=== PATIENT | male | born 1965 | race Caucasian/White ===

== ENCOUNTER 2020-04-23 07:42 | Inpatient (IN) | payer OTHER ==
[~2020-04-23] VITALS: Ht 182.9 cm; Wt 78.4 kg
[2020-04-23] MEDS ORDERED: DEXAMETHASONE SOD PHOS 10 MG/ML VIAL. ONE (08:20)
[2020-04-23] MEDS ORDERED: DEXAMETHASONE SOD PHOS 10 MG/ML VIAL. IVP ONE (08:30)
[2020-04-23] MEDS ORDERED: IV NORMAL SALINE 1,000ML 1,000 ML IV ONE (08:30)
[2020-04-23 08:41] LABS: BASO % 0 % (0-3); EOS # 0.1 x10^3/uL (0.0-0.7); EOS % 1 % (0-3); HEMATOCRIT 42.4 % (39.0-53.0); LYMPH # 0.5 x10^3/uL (1.0-4.8); LYMPH % 7 % (24-48); MEAN CORPUSCULAR HEMOGLOBIN 30 pg (25-35); MEAN CORPUSCULAR HGB CONC 33 g/dL (31-37); MEAN CORPUSCULAR VOLUME 91 fL (79-100); MONO # 0.7 x10^3/uL (0.0-1.1); MONO % 10 % (0-9); NEUT # 5.9 x10^3uL (1.8-7.7); NEUT % 83 % (31-73); PLATELET COUNT 344 x10^3/uL (140-400); RED BLOOD COUNT 4.67 x10^6/uL (4.30-5.70); RED CELL DISTRIBUTION WIDTH 13.2 % (11.5-14.5); WHITE BLOOD COUNT 7.2 x10^3/uL (4.0-11.0)
[2020-04-23 08:43] LABS: CALCIUM 8.1 mg/dL (8.5-10.1); CREATININE 0.9 mg/dL (0.7-1.3); GFR 88.3; POTASSIUM 4.3 mmol/L (3.5-5.1)
--- NOTE | 2020-04-23 08:44 | PHYS DOC ---
General Adult EDM: Chief Complaint: SHORTNESS OF BREATH HPI: HPI: Patient is a 55-year-old male coming in for shortness of breath, decreased p.o. intake, and diarrhea. Patient was diagnosed with COVID-19 3 days ago. His is also diagnosed prior to that but has been getting better. Patient states he has had decreased p.o. intake because he feels too short of breath to drink. Is also noted darker urine. Has not had a fever for the last couple of days. Has occasional body aches. Denies any vomiting. Has had congestion and rhinorrhea with thick yellow sputum, cough is nonproductive. Review of Systems: Review of Systems: All other systems within normal limits except for as noted in the HPI Current Medications: Current Meds: Current Medications Medications (Trade) Dose Ordered Sig/Tonya Start Time Stop Time Status Last Admin Dose Admin Dexamethasone Sodium Phosphate (Decadron) 10 mg 1X ONCE 04/23/20 08:30 04/23/20 08:31 UNV 04/23/20 08:27 10 MG Sodium Chloride 1,000 ml @ 1,000 mls/hr 1X ONCE 04/23/20 08:30 04/23/20 09:29 UNV 04/23/20 08:26 1,000 MLS/HR Allergies: Allergies: Allergies Coded Allergies Type Severity Reaction Last Updated Verified No Known Drug Allergies 04/23/20 No Physical Exam: PE: Constitutional: Well developed, well nourished, no acute distress, non-toxic appearance. [] HENT: Normocephalic, atraumatic, bilateral external ears normal, dry mucous membranes, nose normal. [] Eyes: PERRLA, conjunctiva normal, no discharge. [] Neck: No rigidity, supple, no stridor. [] Cardiovascular: Regular rate and rhythm, brisk cap refill [] Lungs & Thorax: Non labored symmetric respirations, moderate tachypnea [] Abdomen: Soft, nondistended. Skin: Warm, dry, no erythema, no rash. [] Back: Unremarkable Extremities: No deformities, range of motion grossly intact, no lower extremity edema [] Neurologic: Alert and oriented X 3, no focal deficits noted. [] Psychologic: Affect normal, judgement normal, mood normal. [] Current Patient Data: Labs: Laboratory Tests Test 04/23/20 07:55 POC Venous pH 7.43 (7.32-7.42) H POC Venous pCO2 37 mmHg (41-51) L POC Venous pO2 38 mmHg (20-40) Venous Blood HCO3 24 mmol/L (24-28) POC Venous O2 Saturation (Afsaneh) 73 % POC FiO2 24 EKG: EKG: Sinus rhythm, heart rate 81 bpm, normal axis, no ST elevation or depression, no ectopy, normal intervals. [] Radiology/Procedures: Radiology/Procedures: CTA CHEST INDICATION: hypoxia, covid + Comparison: Radiograph 04/23/2020. TECHNIQUE: Following the uneventful administration of intravenous contrast, 100 cc Omnipaque 350, axial CT sections were obtained through the lungs and upper abdomen. Multiplanar reconstructions and MIP images were obtained. PQRS compliance statement: One or more of the following individualized dose reduction techniques were utilized for this examination: 1. Automated exposure control 2. Adjustment of the mA and/or kV according to patient size 3. Use of iterative reconstruction technique FINDINGS: Pulmonary arteries: No evidence of pulmonary thromboembolus disease Lungs and Airways: Extensive bilateral groundglass opacities and consolidations. No abnormality of the central airways. Pleura: The pleural spaces are normal. Heart and Mediastinum: The visualized thyroid is normal in size and attenuation. No axillary or supraclavicular lymphadenopathy. Few conspicuous mediastinal lymph nodes, likely reactive. Normal cardiac size. Coronary artery atherosclerotic disease. The great vessels of the thorax are normal. Abdomen: Limited images through the upper abdomen show no abnormality of the visualized organs. Bones and Soft Tissues: The visualized bones and chest wall soft tissues are within normal limits. IMPRESSION: 1. No evidence of pulmonary thromboembolic disease. 2. Extensive bilateral groundglass opacities and consolidations, consistent with patient's history of infection. 3. Coronary artery atherosclerotic disease. EXAM: XR CHEST 1V INDICATION: Reason: covid / Spl. Instructions: / History: . TECHNIQUE: Single view COMPARISON: None FINDINGS: The heart size is normal. The great vessels appear unremarkable. There is no hilar or mediastinal mass. The lungs show peripheral predominant bilateral patchy parenchymal consolidation involving the left lower lobe and the right upper lobe most clearly but also in volving the medial right lung and left apex. There is no pleural effusion or pneumothorax. There are no significant osseous abnormalities. IMPRESSION: Multifocal pneumonia bilaterally.[] Heart Score: Risk Factors: Risk Factors: DM, Current or recent (<one month) smoker, HTN, HLP, family history of CAD, obesity. Risk Scores: Score 0 - 3: 2.5% MACE over next 6 weeks - Discharge Home Score 4 - 6: 20.3% MACE over next 6 weeks - Admit for Clinical Observation Score 7 - 10: 72.7% MACE over next 6 weeks - Early Invasive Strategies Course & Med Decision Making: Course & Med Decision Making Pertinent Labs and Imaging studies reviewed. (See chart for details) [] Dragon Disclaimer: Dragon Disclaimer: This electronic medical record was generated, in whole or in part, using a voice recognition dictation system. Departure Departure: Impression: Primary Impression: COVID-19 Disposition: 09 ADMITTED INPT THIS HOSP Admitting Physician: Cuba Hendrickson Condition: STABLE Referrals: NIMO LARRY DO (PCP) HELEN BROWN MD Apr 23, 2020 08:44
--- NOTE | 2020-04-23 08:50 | RAD ---
EXAM: XR CHEST 1V INDICATION: Reason: covid / Spl. Instructions: / History: . TECHNIQUE: Single view COMPARISON: None FINDINGS: The heart size is normal. The great vessels appear unremarkable. There is no hilar or mediastinal mass. The lungs show peripheral predominant bilateral patchy parenchymal consolidation involving the left l ower lobe and the right upper lobe most clearly but also involving the medial right lung and left ape x. There is no pleural effusion or pneumothorax. There are no significant osseous abnormalities. IMPRESSION: Multifocal pneumonia bilaterally. Electronically signed by: Nafisa Nielsen MD (04/23/2020 8:48 AM) [id number]
[2020-04-23 08:55] LABS: ALBUMIN 2.7 g/dL (3.4-5.0); ALBUMIN/GLOBULIN RATIO 0.7 (1.0-1.7); TOTAL BILIRUBIN 0.8 mg/dL (0.2-1.0); TOTAL PROTEIN 6.4 g/dL (6.4-8.2)
--- NOTE | 2020-04-23 09:11 | EKG ---
[address] [address] Test Date: 2020-04-23 Test Time: 08:12:57 Pat Name: LEONIDAS HUGHES Department: Room: Gender: M Shoe Lacer: : 1965 Requested By: HELEN BROWN Order Number: [id number] Reading MD: Measurements Intervals [place] Rate: 81 P: 41 NV: 130 QRS: 34 QRSD: 90 T: 16 QT: 350 QTc: 407 Interpretive Statements SINUS RHYTHM NORMAL ECG RI6.02 No previous ECG available for comparison
[2020-04-23] MEDS ORDERED: IOHEXOL 350 MG/ML 100 ML VIAL. IV ONE (10:00)
--- NOTE | 2020-04-23 10:20 | RAD ---
CTA CHEST INDICATION: hypoxia, covid + Comparison: Radiograph 04/23/2020. TECHNIQUE: Following the uneventful administration of intravenous contrast, 100 cc Omnipaque 350, axi al CT sections were obtained through the lungs and upper abdomen. Multiplanar reconstructions and MIP images were obtained. RS compliance statement: One or more of the following individualized dose reduction techniques were utilized for this examinat ion: 1. Automated exposure control 2. Adjustment of the mA and/or kV according to patient size 3. Use of iterative reconstruction technique FINDINGS: Pulmonary arteries: No evidence of pulmonary thromboembolus disease Lungs and Airways: Extensive bilateral groundglass opacities and consolidations. No abnormality of th e central airways. Pleura: The pleural spaces are normal. Heart and Mediastinum: The visualized thyroid is normal in size and attenuation. No axillary or supra clavicular lymphadenopathy. Few conspicuous mediastinal lymph nodes, likely reactive. Normal cardiac size. Coronary artery atherosclerotic disease. The great vessels of the thorax are normal. Abdomen: Limited images through the upper abdomen show no abnormality of the visualized organs. Bones and Soft Tissues: The visualized bones and chest wall soft tissues are within normal limits. IMPRESSION: 1. No evidence of pulmonary thromboembolic disease. 2. Extensive bilateral groundglass opacities and consolidations, consistent with patient's history of infection. 3. Coronary artery atherosclerotic disease. Electronically signed by: Nathan Warren MD (04/23/2020 10:18 AM) [id number]
[2020-04-23] MEDS ORDERED: ONDANSETRON PF 4 MG/2 ML VIAL. IVP PRN (10:30)
[2020-04-23] MEDS ORDERED: ACETAMINOPHEN 325 MG TABLET PO PRN (10:30)
[2020-04-23] MEDS ORDERED: MORPHINE SULFATE 2 MG/ML DISP.SYRIN. IVP PRN (10:30)
[2020-04-23 12:42] VITALS: BP 154/91
[2020-04-23] MEDS ORDERED: ZOMIG (12:57)
[2020-04-23] MEDS ORDERED: OMEP20TA63 PO (12:57)
[2020-04-23] MEDS ORDERED: NAPROXEN (12:57)
[2020-04-23] MEDS ORDERED: CRESTOR5 MG PO (12:57)
--- NOTE | 2020-04-23 13:00 | NUR ---
NURSING NOTE ADMIT PT ADMIT TO ROOM 121 FOR DX OF COVID + AND HYPOXIA. PT C/O SOA. STATES SUNDAY FELT HORRIBLE. SUNDAY WORSE, WENT TO GET SWABBED CAME BACK POSITIVE. SOA, PANIC FEELING, COUGHING MAKES IT HARDER TO BREATHE. DIARRHEA THE LAST 3 DAYS, LBM 2 NOT EATING MUCH/NO APPETITE. URINE BROWN/YELLOW. PT SETTLED IN ROOM. NO COMPLICATIONS. ADAN STEWARD.
[2020-04-23] MEDS: IV NORMAL SALINE 1,000ML 1,000 ML IV SCH ×2 (13:15→22:26)
[2020-04-23 15:01] VITALS: BP 138/89
[2020-04-23] MEDS ORDERED: AZITHROMYCIN 500 MG in IV NORMAL SALINE 250ML 250 ML IV ONE (16:00)
--- NOTE | 2020-04-23 16:10 | HP ---
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 He apparently has had cough and shortness of breath, some nausea and vomiting as well as diarrhea and was tested positive. His was also diagnosed prior to that and has been living together in the same house. He denied any fever. He has occasional body aches and has had some congestion, rhinorrhea, thick yellow sputum and cough that is nonproductive. He was extensively investigated in the Emergency Room, was found to have the CT scan of the chest evidence of extensive bilateral ground-glass opacities and consolidation consistent with the patient's history of infection and therefore, the patient was admitted with COVID-19 pneumonia as well as acute hypoxic respiratory failure. PAST MEDICAL HISTORY: Significant for hyperlipidemia, migraine headache, gastroesophageal reflux disease and obstructive sleep apnea. PAST SURGICAL HISTORY: Significant for melanoma resection, surgery on his left knee and also his testicles. ALLERGIES: He has no known drug allergies. MEDICATIONS: He is currently on following medications: He is on Crestor 5 mg at bedtime, omeprazole 20 mg once a day, naproxen 500 mg twice a day and Zomig for migraine headache. He also takes [id number] Tylenol and multivitamin. FAMILY HISTORY: Noncontributory. SOCIAL HISTORY: He is , lives with his . He does not smoke. Drinks alcohol occasionally. He does not use any drugs. 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 REVIEW OF SYSTEMS: As per history of present illness. PHYSICAL EXAMINATION: GENERAL: On arrival to the Emergency Room, he looked well and was clearly in no apparent respiratory distress. There is no pallor, jaundice or cyanosis. No lymphadenopathy, no thyromegaly. No jugular venous distention. No lower limb edema. VITAL SIGNS: His heart rate was 82, blood pressure was 131/91, temperature was 98.3, respiratory rate was 45 and oxygen saturation was 94% on 9 liters of oxygen. HEAD, EYES, EARS, NOSE AND THROAT: Showed normocephalic, atraumatic. NECK: Supple. HEART: Normal first and second heart sounds. No gallop or murmur. CHEST: Shows central trachea, equal bilateral chest expansion, air entry, vesicular sounds, bilateral crepitation. I could not appreciate any rhonchi. ABDOMEN: Distended, soft, nontender. NEUROLOGIC: He was awake, alert, responding appropriately. All cranial nerves intact. EXTREMITIES: He moves extremities without difficulty, ambulates without assistance or assistive devices. LABORATORY DATA: His lab work showed a white cell count 7200, hemoglobin 14, hematocrit 42, MCV 91, and platelet count 344,000. His D-dimer was 0.91. Serum sodium 140, potassium 4.3, chloride 102, bicarbonate 28, anion gap of 10, BUN 13, creatinine 0.9, estimated GFR was 88 mL per minute, his glucose 118. Lactic acid was 1.3, calcium was 8.1. Total bilirubin, AST, ALT, alkaline phosphatase were normal. Beta natriuretic peptide was 108. Total protein was 6.4, albumin was 2.7. His arterial blood gases showed a pH of 7.43, pCO2 of 37, pO2 of 38, bicarbonate 24, and oxygen saturation was 73% on FiO2 of 24%. IMAGING STUDIES: His chest x-ray showed the heart size is normal. The great vessels appear unremarkable. There is no hilar or mediastinal mass. The lungs show peripheral predominant bilateral patchy parenchymal consolidation involving the left lower lobe and right upper lobe, most clearly, but also involving the medial right lung and left apex. There is no pleural effusion or pneumothorax. There are no significant osseous abnormalities. He did have a CT angio of the chest, which showed that there is no evidence of pulmonary thromboembolism. There is extensive bilateral ground-glass opacities and consolidation. No abnormality of the central airways. The pleural spaces are normal. The heart and mediastinum showed were normal size. No axillary or supraclavicular lymphadenopathy. Conspicuous mediastinal lymph nodes, likely reactive. Normal size heart with coronary artery atherosclerotic disease. The great vessels of thorax are normal. The upper abdomen showed no abnormalities of visualized organs. Bones and soft tissues are within normal limits. ASSESSMENT AND PLAN: The patient was admitted with COVID-19 pneumonia and acute hypoxic respiratory failure. His other medical problems include migraine headache, gastroesophageal reflux disease, hyperlipidemia and generalized osteoarthritis. The patient will be continued on dexamethasone. I would also start him on ceftriaxone and Zithromax as well as Lovenox and will follow him closely on a daily basis and decide the further management accordingly. CHRISTIAN FOOTE MD DR: NIELS/katlyn JOB#: [id number] / [id number]
[2020-04-23] MEDS: ENOXAPARIN 40 MG/0.4 ML SYRINGE. SQ SCH (16:23)
--- NOTE | 2020-04-23 16:34 | NUR ---
NURSING NOTE PT DOING WELL, PT OXGYEN SPOT CHECK WAS 95%ON 1.5 LITERS RESTING IN BED. PT DENIES PAIN, DENIES NAUSEA, STATES HE IS DOING OKAY. ADAN STEWARD.
[2020-04-23 19:24] VITALS: BP 131/82
[2020-04-23 22:25] VITALS: BP 118/80
--- NOTE | 2020-04-24 02:44 | NUR ---
Nursing note: Pt A&Ox4, no c/o nausea or pain. Pt did feel SOA; O2 sat 94%. Pt stated he felt he was unable to catch his breath or take deep breaths. Pt rested comfortably through shift. Discussed proning with pt.
[2020-04-24 05:43] LABS: BACTERIA,URINE 0 /HPF (0-FEW); BILIRUBIN,URINE NEG (NEG); CLARITY,URINE CLEAR; COLOR,URINE YELLOW; GLUCOSE,URINE NEG (NEG); NITRITE,URINE NEG (NEG); RBC,URINE 0 /HPF (0-2); SQUAMOUS EPITHELIAL CELL,UR OCC /LPF; WBC,URINE OCC /HPF (0-4)
[2020-04-24 05:50] VITALS: BP 113/83
[2020-04-24] MEDS: AZITHROMYCIN 250 MG TABLET. PO SCH (07:22)
[2020-04-24] MEDS: DEXAMETHASONE SOD PHOS 4 MG/ML VIAL. IVP SCH (07:23)
[2020-04-24 08:16] LABS: ALBUMIN 2.1 g/dL (3.4-5.0); ALBUMIN/GLOBULIN RATIO 0.5 (1.0-1.7); CALCIUM 7.7 mg/dL (8.5-10.1); CREATININE 0.9 mg/dL (0.7-1.3); GFR 88.3; TOTAL BILIRUBIN 0.4 mg/dL (0.2-1.0); TOTAL PROTEIN 6.3 g/dL (6.4-8.2)
[2020-04-24 08:47] LABS: BASO % 0 % (0-3); EOS % 0 % (0-3); HEMATOCRIT 37.2 % (39.0-53.0); HEMOGLOBIN 12.5 g/dL (13.0-17.5); LYMPH # 0.5 x10^3/uL (1.0-4.8); LYMPH % 7 % (24-48); MEAN CORPUSCULAR HEMOGLOBIN 30 pg (25-35); MEAN CORPUSCULAR HGB CONC 34 g/dL (31-37); MEAN CORPUSCULAR VOLUME 90 fL (79-100); MONO # 0.5 x10^3/uL (0.0-1.1); MONO % 7 % (0-9); NEUT # 5.7 x10^3uL (1.8-7.7); NEUT % 86 % (31-73); PLATELET COUNT 359 x10^3/uL (140-400); RED BLOOD COUNT 4.14 x10^6/uL (4.30-5.70); RED CELL DISTRIBUTION WIDTH 13.2 % (11.5-14.5); WHITE BLOOD COUNT 6.6 x10^3/uL (4.0-11.0)
[2020-04-24 11:29] VITALS: BP 135/81
[2020-04-24] MEDS: LACTOBACILLUS RHAMNOSUS GG 1 CAPSULE. PO SCH ×2 (11:42→19:58)
[2020-04-24] MEDS: IV NORMAL SALINE 1,000ML 1,000 ML IV SCH ×2 (11:43→19:59)
[2020-04-24] MEDS: ACETAMINOPHEN 500 MG TABLET PO PRN (13:41)
--- NOTE | 2020-04-24 14:06 | PN ---
DATE: 04/24/2020 SUBJECTIVE: The patient is resting, slightly propped up in bed, in no apparent distress. He continued to have cough, fever and some drenching sweats; however, his oxygen saturation was 94% on room air. OBJECTIVE: GENERAL: When I examined him this afternoon, he looked well and was clearly in no apparent respiratory distress. No pallor, jaundice, cyanosis or thyromegaly. No jugular venous distension. No limb edema. VITAL SIGNS: His heart rate was 78, blood pressure was 135/81, temperature was 97, respiratory rate was 18 and oxygen saturation was 94% on 2 liters of oxygen. HEAD, EYES, EARS, NOSE, AND THROAT: Showed normocephalic, atraumatic. NECK: Supple. HEART: Showed normal first and second heart sounds. No gallop, rub or murmur. CHEST: Shows central trachea, equal bilateral chest expansion, air entry, vesicular sounds with crepitation mostly on both sides posteriorly. ABDOMEN: Distended, soft, nontender. NEUROLOGIC: He was grossly intact. His intake and output are incompletely recorded. LABORATORY DATA: His lab work this morning showed a white cell count of 6600, hemoglobin 12.5, hematocrit 37, MCV 90 and platelet count 359,000 with normal manual differential. Serum sodium was 142, potassium 4, chloride 108, bicarbonate was 24, anion gap of 10, BUN 16, creatinine 0.9, estimated GFR was 88 mL per minute. His glucose 137, lactic acid was 1.3, calcium was 7.7. Total bilirubin and alkaline phosphatase normal. AST, ALT were elevated. His total protein was 6.3, albumin 2.5. His D-dimer was 0.91 mg/dL. ASSESSMENT: 1. Acute COVID-19 pneumonia. 2. Acute hypoxic respiratory failure. Other problems include: A. Migraine headache. B. Gastroesophageal reflux disease. C. Hyperlipidemia. D. Generalized osteoarthritis. PLAN: Continue with antibiotic. Continue with steroids. Continue with DVT prophylaxis. CHRISTIAN FOOTE MD DR: NIELS/katlyn JOB#: [id number] / [id number]
[2020-04-24 15:15] VITALS: BP 125/82
[2020-04-24] MEDS: IPRATROPIUM/ALBUTEROL 20/100mcg/INH INHALER. INH SCH ×2 (17:06→19:59)
[2020-04-24] MEDS: ENOXAPARIN 40 MG/0.4 ML SYRINGE. SQ SCH (17:07)
[2020-04-24 19:00] VITALS: BP 132/87
--- NOTE | 2020-04-25 04:39 | NUR ---
Nursing note: Pt rested through much of shift. Pt on room air at beginning of shift, O2 as charted; 2L NC for noc d/t SJ. Pt stated he does feel better, breathing more easily than previous shift. VS as noted in chart.
[2020-04-25] MEDS: IV NORMAL SALINE 1,000ML 1,000 ML IV SCH (05:15)
[2020-04-25 07:18] VITALS: BP 133/84
[2020-04-25] MEDS: LACTOBACILLUS RHAMNOSUS GG 1 CAPSULE. PO SCH ×2 (07:59→20:36)
[2020-04-25] MEDS: DEXAMETHASONE SOD PHOS 4 MG/ML VIAL. IVP SCH (07:59)
[2020-04-25] MEDS: AZITHROMYCIN 250 MG TABLET. PO SCH (07:59)
[2020-04-25] MEDS: IPRATROPIUM/ALBUTEROL 20/100mcg/INH INHALER. INH SCH ×4 (07:59→20:00)
[2020-04-25 11:18] VITALS: BP 130/87
--- NOTE | 2020-04-25 14:27 | PN ---
DATE: 04/25/2020 SUBJECTIVE: The patient is resting, slightly propped up in bed, in no apparent distress, continued to have cough, although much less than before. He is maintaining his oxygen saturation at 93% on room air at rest, however, he desaturates down to 84% on room air on exertion as we did a 6-minute walk. PHYSICAL EXAMINATION: GENERAL: When I examined him, he looked well and was clearly in no apparent respiratory distress. There is no pallor, jaundice, cyanosis or thyromegaly. No jugular venous distension. No limb edema. VITAL SIGNS: His heart rate was 73, blood pressure was 130/87, temperature 97.1, respiratory rate 20, and oxygen saturation was 98% on 3 liters of oxygen. In fact, on room air, he is doing 93-94%. HEAD, EYES, EARS, NOSE, AND THROAT: Showed normocephalic, atraumatic. NECK: Supple. HEART: Showed normal first and second heart sounds. No gallop, rub or murmur. CHEST: Showed central trachea, equal bilateral chest expansion, air entry, vesicular sounds. He has bilateral basal crepitation posteriorly, I could not appreciate any rhonchi. ABDOMEN: Scaphoid, soft, nontender. NEUROLOGIC: He was grossly intact. His intake was 1200, no output was recorded. LABORATORY DATA: Actually, he has no lab work done this morning. ASSESSMENT: 1. Acute COVID-19 pneumonia. 2. Acute hypoxic respiratory failure. 3. Other medical problems include: A. Migraine headache. B. Gastroesophageal reflux disease. C. Hyperlipidemia. D. Generalized osteoarthritis. PLAN: To continue with IV antibiotic. Continue with dexamethasone. Continue with DVT prophylaxis. Continue with Combivent inhaler. I will repeat all his lab work tomorrow. CHRISTIAN FOOTE MD DR: NIELS/katlyn JOB#: [id number] / [id number]
[2020-04-25 16:07] VITALS: BP 126/87
[2020-04-25] MEDS: ENOXAPARIN 40 MG/0.4 ML SYRINGE. SQ SCH (16:59)
[2020-04-25] MEDS: ACETAMINOPHEN 500 MG TABLET PO PRN (20:36)
[2020-04-25 22:29] VITALS: BP 124/81
[2020-04-26 05:34] LABS: HEMATOCRIT 36.3 % (39.0-53.0); HEMOGLOBIN 12.1 g/dL (13.0-17.5); RED BLOOD COUNT 4.07 x10^6/uL (4.30-5.70); RED CELL DISTRIBUTION WIDTH 12.9 % (11.5-14.5); WHITE BLOOD COUNT 10.3 x10^3/uL (4.0-11.0)
[2020-04-26 05:44] VITALS: BP 138/68
[2020-04-26 05:48] LABS: ALBUMIN 2.1 g/dL (3.4-5.0); ALBUMIN/GLOBULIN RATIO 0.6 (1.0-1.7); CALCIUM 7.5 mg/dL (8.5-10.1); CREATININE 0.9 mg/dL (0.7-1.3); GFR 88.3; TOTAL BILIRUBIN 0.3 mg/dL (0.2-1.0); TOTAL PROTEIN 5.9 g/dL (6.4-8.2)
[2020-04-26] MEDS: AZITHROMYCIN 250 MG TABLET. PO SCH (07:53)
[2020-04-26] MEDS: LACTOBACILLUS RHAMNOSUS GG 1 CAPSULE. PO SCH ×2 (07:53→21:32)
[2020-04-26] MEDS: DEXAMETHASONE SOD PHOS 4 MG/ML VIAL. IVP SCH (07:54)
[2020-04-26] MEDS: IPRATROPIUM/ALBUTEROL 20/100mcg/INH INHALER. INH SCH ×4 (07:55→20:00)
[2020-04-26 11:31] VITALS: BP 121/89
--- NOTE | 2020-04-26 15:03 | PN ---
DATE: 04/26/2020 SUBJECTIVE: The patient is resting, slightly propped up in bed, in no apparent distress. On questioning him, he stated that he has generally felt much better, has less cough. Denied any chest pain; however, he obviously have shortness of breath on exertion. He is maintaining his oxygen saturation of 92% on 3 liters of oxygen by nasal cannula. PHYSICAL EXAMINATION: GENERAL: When I examined him, he looked well and was clearly in no apparent respiratory distress. No pallor, jaundice, cyanosis or thyromegaly. No jugular venous distension. No limb edema. VITAL SIGNS: Her heart rate was 72, blood pressure 121/89, temperature was 97.3, respiratory rate was 18, and oxygen saturation was 92% on 3 liters of oxygen. HEAD, EYES, EARS, NOSE, AND THORAT: Normocephalic, atraumatic. NECK: Supple. HEART: Showed normal first and second heart sounds. No gallop or murmur. CHEST: Clear to auscultation. No crepitation or rhonchi. ABDOMEN: Distended, soft, nontender. No guarding or rigidity. No organomegaly. All hernial orifice intact. Bowel sounds normal. NEUROLOGIC: He was awake, alert, responding. CHEST: Shows central trachea, equal bilateral chest expansion, air entry, vesicular sounds with bilateral basal crepitation. I could not appreciate any rhonchi. ABDOMEN: Distended, soft, nontender. NEUROLOGICAL: He was awake, alert, responding appropriately. All cranial nerves are intact. He moves extremities without difficulty, ambulates without assistance or assistive devices. His intake over the last 24 hours was 2530. No output was recorded. LABORATORY DATA: Her lab work this morning showed a serum sodium 141, potassium 4, chloride 106, bicarbonate 27, anion gap of 8, BUN 15, creatinine 0.9, estimated GFR was 88 mL per minute, his glucose 104, calcium was 7.5. His total bilirubin and alkaline phosphatase normal. AST, ALT slightly elevated and trending to be higher. His total protein was 5.9, albumin was 2.1. His white cell count was 10,000, hemoglobin 12, hematocrit 36, MCV 89, and platelet count of 405,000. D-dimer was slightly high at 1.01. So far his blood culture showed no growth after 3 days. ASSESSMENT: 1. Acute COVID-19 pneumonia. 2. Acute hypoxic respiratory failure. 3. Other medical problems include; A. Migraine headache. B. Gastroesophageal reflux disease. C. Hyperlipidemia. D. Generalized osteoarthritis. PLAN: Continue with IV antibiotic. Continue with dexamethasone. Continue with DVT prophylaxis. Continue with Combivent inhaler. I will also repeat his chest x-ray and discuss the finding with Dr. Rodriguez and Dr. Cruz as he does not seem to be improving dramatically, although he remained to be stable around maintaining his oxygen saturation at 92% on 3 liters of oxygen. CHRISTIAN FOOTE MD DR: NIELS/katlyn JOB#: [id number] / [id number]
--- NOTE | 2020-04-26 15:36 | RAD ---
XR CHEST 1V INDICATION: worsening shortness of breath . COMPARISON STUDY: 04/23/2020. FINDINGS: Lungs: Normal lung volume. Stable patchy bilateral heterogeneous opacities. Normal pulmonary vasculat ure. Pleura: No pleural effusion or pneumothorax. Heart and Mediastinum: Stable cardiomediastinal silhouette and great vessels. IMPRESSION: Stable patchy bilateral heterogeneous opacities. Electronically signed by: Nathan Warren MD (04/26/2020 3:00 PM) [id number]
[2020-04-26] MEDS: ENOXAPARIN 40 MG/0.4 ML SYRINGE. SQ SCH (16:42)
--- NOTE | 2020-04-26 16:48 | NUR ---
NURSING NOTE PT IN BED THIS AM UPON ASSESSMENT AND MEDICATION ADMINISTRATION. PT A&O. DENIES PAIN. THIS AFTERNOON, PT OXYGEN DOWN TO 88%. PT OXYGEN INCREASED TO 4 LITERS. PT IS ANXIOUS ABOUT HIS COVID AND TEARFUL. ADAN STEWARD.
[2020-04-26 20:45] VITALS: BP 137/95
[2020-04-26] MEDS: ACETAMINOPHEN 500 MG TABLET PO PRN (21:32)
[2020-04-27 05:46] VITALS: BP 141/91
[2020-04-27] MEDS: IPRATROPIUM/ALBUTEROL 20/100mcg/INH INHALER. INH SCH ×4 (08:00→20:00)
[2020-04-27] MEDS: DEXAMETHASONE SOD PHOS 4 MG/ML VIAL. IVP SCH (09:00)
[2020-04-27] MEDS: LACTOBACILLUS RHAMNOSUS GG 1 CAPSULE. PO SCH ×2 (09:00→20:59)
[2020-04-27] MEDS: AZITHROMYCIN 250 MG TABLET. PO SCH (09:00)
[2020-04-27] MEDS: ENOXAPARIN 40 MG/0.4 ML SYRINGE. SQ SCH (11:21)
[2020-04-27 14:57] VITALS: BP 117/86
--- NOTE | 2020-04-27 17:47 | PN ---
DATE: 04/27/2020 SUBJECTIVE: The patient is resting, slightly propped up in bed, in no apparent distress. He is feeling generally better. He continued to have cough and has bilateral coarse crepitation posteriorly; however, he has no fever. PHYSICAL EXAMINATION: GENERAL: When I examined him, he looked well and was clearly in no apparent respiratory distress. No pallor, jaundice, cyanosis or thyromegaly. No jugular venous distension. No lower limb edema. VITAL SIGNS: His heart rate was 94, blood pressure was 117/86, temperature of 96, respiratory rate 24 and oxygen saturation was 95% on 5 liters of oxygen. HEAD, EYES, EARS, NOSE AND THROAT: Showed normocephalic, atraumatic. NECK: Supple. HEART: Showed normal first and second heart sounds. No gallop, rub or murmur. CHEST: Shows central trachea, equal bilateral expansion, air entry, vesicular sounds with bilateral coarse crepitation posteriorly. I could not appreciate any rhonchi. ABDOMEN: Scaphoid, soft, nontender. NEUROLOGIC: He is grossly intact. His intake and output were incompletely recorded. LABORATORY DATA: His lab work showed a white cell count of 10,000; hemoglobin 12; hematocrit 36; MCV 89 and platelet count of ____. His serum sodium was 141, potassium 4, chloride 106, bicarbonate 27, anion gap of 8, BUN 15, creatinine 0.9, estimated GFR was 88 mL per minute, his glucose 104, calcium was 7.5. Total bilirubin and alkaline phosphatase is normal. AST, ALT are elevated. Total protein was 5.9, albumin was 2.2. His D-dimer was slightly up at 1.01. Urinalysis essentially unremarkable. ASSESSMENT: 1. COVID-19 pneumonia. 2. Acute hypoxic respiratory failure. 3. Other medical problems include: A. Migraine headache. B. Gastroesophageal reflux disease. C. Hyperlipidemia. D. Generalized osteoarthritis. PLAN: Continue with IV antibiotic. Continue with dexamethasone. Continue with DVT prophylaxis and Combivent inhaler. I did speak with Dr. Rodriguez and he basically did not recommend any other forms of therapy and continue as he is. 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 CHRISTIAN FOOTE MD DR: NIELS/katlyn JOB#: [id number] / [id number]
[2020-04-27 19:20] VITALS: BP 121/88
[2020-04-27] MEDS: ACETAMINOPHEN 500 MG TABLET PO PRN (20:59)
[2020-04-28 05:39] VITALS: BP 121/86
[2020-04-28 06:27] LABS: HEMATOCRIT 39.6 % (39.0-53.0); HEMOGLOBIN 13.3 g/dL (13.0-17.5); RED BLOOD COUNT 4.43 x10^6/uL (4.30-5.70); RED CELL DISTRIBUTION WIDTH 12.9 % (11.5-14.5); WHITE BLOOD COUNT 8.1 x10^3/uL (4.0-11.0)
[2020-04-28 06:57] LABS: ALBUMIN 2.1 g/dL (3.4-5.0); ALBUMIN/GLOBULIN RATIO 0.5 (1.0-1.7); CALCIUM 8.1 mg/dL (8.5-10.1); CREATININE 0.8 mg/dL (0.7-1.3); GFR 101.1; POTASSIUM 4.1 mmol/L (3.5-5.1); TOTAL BILIRUBIN 0.3 mg/dL (0.2-1.0); TOTAL PROTEIN 6.4 g/dL (6.4-8.2)
[2020-04-28] MEDS: IPRATROPIUM/ALBUTEROL 20/100mcg/INH INHALER. INH SCH ×2 (08:00→12:00)
[2020-04-28] MEDS: LACTOBACILLUS RHAMNOSUS GG 1 CAPSULE. PO SCH (09:18)
[2020-04-28] MEDS: DEXAMETHASONE SOD PHOS 4 MG/ML VIAL. IVP SCH (09:18)
[2020-04-28] MEDS: AZITHROMYCIN 250 MG TABLET. PO SCH (09:18)
[2020-04-28 11:46] VITALS: BP 120/89
[2020-04-28] MEDS: ACETAMINOPHEN 500 MG TABLET PO PRN (11:56)
--- NOTE | 2020-04-28 12:13 | DS ---
DATE OF DISCHARGE: 04/28/2020 ATTENDING PHYSICIAN: Dr. Hendrickson FINAL DISCHARGE DIAGNOSES: 1. COVID-19 pneumonia. 2. Acute hypoxemic respiratory failure, resolved. 3. History of migraine headaches, stable. 4. Gastroesophageal reflux disease. 5. Hyperlipidemia. HISTORY AND PHYSICAL: The patient is a pleasant, active 55-year-old retired , still active. He was admitted with increased shortness of breath and hypoxemic respiratory failure consistent with COVID-19 pneumonia. PHYSICAL EXAMINATION: Please see the dictated note. PERTINENT LABORATORY AND X-RAY STUDIES: Admission hemoglobin was 14.0 g/dL, white count 7200. Chemistry panel is within normal range. BUN was 18, creatinine 0.8 mg percent. Nonfasting blood sugar was adequate. IMAGING STUDIES: His CT angiogram on admission showed no evidence of pulmonary thromboembolic disease, extensive bilateral ground glass opacity consolidation consistent with atypical pneumonia. COURSE IN THE HOSPITAL: The patient was admitted. He received intravenous Decadron, supplemental oxygen, and breathing treatments with marked improvement. He did well. Symptoms were improved. He had a mild cough, nonproductive. He remained afebrile. By the sixth hospital day, his vital signs were stable. Oxygen saturations were down to 94% on room air. He was afebrile and he was ready for discharge. Lungs sounded clear and he felt well. At this time, I recommended 7 more days of Decadron 4 mg tabs 2 daily and then stop, Tussionex 5 mL q. 12 hours p.r.n. cough and continuation of his p.r.n. Zomig and Protonix. [place] The [place] was then discharged from our hospital in stable condition with explicit instructions and followup care. He did receive in the hospital 5 days of empiric antibiotics too in addition to the COVID treatment. TOTAL DISCHARGE TIME SPENT: 38 minutes. BRUNA PATEL MD DR: [email or web address] JOB#: [id number] / [id number]
--- NOTE | 2020-04-28 13:07 | NUR ---
PATIENT HAS O2 SAT AT 92-94% ON RA. PATIENT IS DISCHARGED HOME, DISCHARGE INSTRUCTIONS REVIEWED, PATIENT VERBALIZED UNDERSTANDING , PATIENT STATED HE HAS PULSE OXIMETER AT HOME TO MONITOR HIS O2. PATIENT LEFT ROOM VIA AMBULATION ACCOMP BY STAFF MEMBER. PATIENT IS TAKEN HOME BY HIS VIA PERSONAL VEHICLE.
[2020-04-28] MEDS ORDERED: ENOXAPARIN 40 MG/0.4 ML SYRINGE. SQ SCH (16:00)
== END 2020-04-28 12:50 | disposition home or self-care (01) | DRG 177 ==
LOC: ER 07:42 → 1 SOUTH 10:30
PROVIDERS: ADMIT Internal Medicine; ATTEND Internal Medicine
PROC: 5A0935A Assistance with Respiratory Ventilation, Less than 24 Consecutive Hours, High Flow/Velocity Cannula (ICD-10-PCS; principal; 2020-04-27)
DX: U07.1 COVID-19 (principal); J12.82 Pneumonia due to coronavirus disease 2019; J96.01 Acute respiratory failure with hypoxia; E78.5 Hyperlipidemia, unspecified; G43.909 Migraine, unspecified, not intractable, without status migrainosus; K21.9 Gastro-esophageal reflux disease without esophagitis; M15.9 Polyosteoarthritis, unspecified; Z85.820 Personal history of malignant melanoma of skin
CPT/HCPCS: 36415; 71045; 71275; 80053; 81001; 82803; 83605; 83880; 84484; 85025; 85027; 85379; 87040; 93005; 94618; 96361; 96374; 99285; J0456; J0696; J1100; J1650; J7050; Q9967; J7030